=== PATIENT | male | born 1980 | race Caucasian/White ===

== ENCOUNTER 2024-09-10 14:06 | Emergency (ER) | payer OTHER ==
[~2024-09-10] VITALS: Ht 180.3 cm; Wt 81.8 kg
[2024-09-10 14:08] VITALS: TEMP 98.8
[2024-09-10 22:13] VITALS: BP 131/74; PULSE 78; RESP 18; O2SAT 99
== END 2024-09-10 22:28 | disposition home or self-care (01) ==
LOC: EMS 14:06
DX: H91.92 Unspecified hearing loss, left ear (principal); K08.89 Other specified disorders of teeth and supporting structures; E11.9 Type 2 diabetes mellitus without complications
CPT/HCPCS: 70486; 82962; 99284

== ENCOUNTER 2024-12-02 18:21 | Inpatient (IN) | payer OTHER ==
[~2024-12-02] VITALS: Ht 170.2 cm; Wt 77.3 kg
[2024-12-02 18:36] LABS: COVID AG,FIA SOURCE NASAL SWAB
[2024-12-02 19:08] LABS: SARS-COV2 (COVID) ANTIGEN,FIA Negative (Negative)
[2024-12-02 19:09] LABS: INFLUENZA TYPE A NEGATIVE FOR TYPE A (NEGATIVE); INFLUENZA TYPE B NEGATIVE FOR TYPE B (NEGATIVE)
[2024-12-02] MEDS ORDERED: 0.9% SODIUM CHLORIDE 10 ML SYRINGE IVP PRN (19:15)
[2024-12-02 19:52] LABS: BASOPHILS % (AUTO) 0.3 % (0.0-2.0); LYMPHOCYTES # (AUTO) 0.9 K/uL (1.0-4.8); MONOCYTES # (AUTO) 0.6 K/uL (0.1-1.0)
[2024-12-02 19:55] LABS: EOSINOPHILS % (AUTO) 3.3 % (1.0-6.0); HEMATOCRIT 49.6 % (41-53); HEMOGLOBIN 16.5 g/dL (13.5-17.5); LYMPHOCYTES % (AUTO) 8.6 % (22.0-44.0); MEAN CORPUSCULAR HEMOGLOBIN 31.6 pg (26.0-34.0); MEAN CORPUSCULAR HGB CONC 33.4 G/dL (31.0-37.0); MEAN CORPUSCULAR VOLUME 95 fL (80-100); MONOCYTES % (AUTO) 5.7 % (2.0-9.0); NEUTROPHILS # (AUTO) 8.8 K/uL (1.8-7.7); NEUTROPHILS % (AUTO) 82.1 % (40.0-70.0); PLATELET COUNT (AUTO) 244 K/uL (150-450); RED BLOOD CELL COUNT(AUTO) 5.24 MIL/uL (4.50-5.90); RED CELL DISTRIBUTION WIDTH 13.2 % (11.5-14.5); WHITE BLOOD COUNT (AUTO) 10.8 K/uL (4.5-11.0)
[2024-12-02 20:04] LABS: ANION GAP 12 mmol/L (8-16); CALCIUM, TOTAL 9.8 mg/dL (8.8-10.5); CARBON DIOXIDE 26 mmol/L (22-29); CHLORIDE 99 mmol/L (98-107); CREATININE 0.86 mg/dL (0.60-1.30); GLOMERULAR FILTR. RATE CALC > 60 mL/min (>60); GLUCOSE,RANDOM 103 mg/dL (70-110); POTASSIUM 3.8 mmol/L (3.5-5.1); PROTHROMBIN TIME 11.6 SEC (9.4-11.6); SODIUM SERUM 137 mmol/L (136-145); UREA NITROGEN, BLOOD 10 mg/dL (7-18)
[2024-12-02 20:13] LABS: TROPONIN I-HIGH SENSITIVITY 5 ng/L (<76)
[2024-12-02] MEDS: ACETAMINOPHEN 1000 MG/ISO-OSM 100 ML IV ONE (20:19)
[2024-12-02] MEDS: SODIUM CHLORIDE 0.9% 2,300 ML IV ONE (20:19)
[2024-12-02 20:24] LABS: ALBUMIN 4.3 g/dL (3.4-5.0); BILIRUBIN,DIRECT 0.2 mg/dL (0.00-0.20); BILIRUBIN,TOTAL 0.5 mg/dL (0.1-1.0); TOTAL PROTEIN, SERUM 8.8 g/dL (6.4-8.2)
[2024-12-02 20:29] LABS: B-TYPE NATRIURETIC PEPTIDE 8 pg/mL (0-100)
[2024-12-02 20:37] LABS: LACTIC ACID 2.2 mmol/L (0.4-2.0)
[2024-12-02] MEDS: CefTRIAXone 1 GM/DEXTROSE 50 ML IV ONE (20:55)
[2024-12-02] MEDS: AZITHROMYCIN 500 MG/NS 250 ML IV ONE (21:06)
[2024-12-02] MEDS ORDERED: ALBUTEROL SULFATE 2.5 MG/0.5 ML NEB SOLUTION NEB PRN (21:15)
[2024-12-02] MEDS ORDERED: IPRATROPIUM BROMIDE 0.5 MG/2.5 ML NEB SOLUTION NEB PRN (21:15)
[2024-12-02] MEDS ORDERED: ACETAMINOPHEN 325 MG TABLET PO PRN (21:15)
[2024-12-02] MEDS ORDERED: ONDANSETRON HCL 4 MG/2 ML VIAL IVP PRN (21:15)
[2024-12-02] MEDS: IPRATROPIUM BROMIDE 0.5 MG/2.5 ML NEB SOLUTION NEB ONE (21:42)
[2024-12-02] MEDS: ALBUTEROL SULFATE 2.5 MG/0.5 ML NEB SOLUTION NEB ONE (21:42)
[2024-12-02 21:45] VITALS: PULSE 88; RESP 22; O2SAT 97
[2024-12-02 21:52] LABS: D-DIMER 0.21 mg/L FEU (0.00-0.50)
[2024-12-02 22:01] VITALS: PULSE 90; RESP 20; O2SAT 100
[2024-12-02 22:13] LABS: APPEARANCE,URINE CLEAR (CLEAR); BILIRUBIN,URINE NEGATIVE (NEGATIVE); COLOR,URINE YELLOW (YELLOW); GLUCOSE, URINE (UA) NEGATIVE (NEGATIVE); LEUKOCYTE ESTERASE ,URINE NEGATIVE (NEGATIVE); NITRATE,URINE NEGATIVE (NEGATIVE); OCCULT BLOOD,URINE NEGATIVE (NEGATIVE); PH,URINE 5.5 (5.0-8.0); PROTEIN,URINE TRACE mg/dL (NEGATIVE); SPECIFIC GRAVITIY, URINE 1.025 (1.003-1.030)
[2024-12-02 22:19] LABS: ALCOHOL, URINE DRUG SCREEN NEGATIVE (NEGATIVE); AMPHET/METH SCREEN,URINE NEGATIVE (NEGATIVE); BARBITURATE SCREEN, URINE NEGATIVE (NEGATIVE); BENZODIAZEPINES SCREEN,URINE NEGATIVE (NEGATIVE); CANNABINOID SCREEN,URINE NEGATIVE (NEGATIVE); COCAINE SCREEN,URINE POSITIVE (NEGATIVE); METHADONE SCREEN, URINE NEGATIVE (NEGATIVE); OPIATE SCREEN,URINE NEGATIVE (NEGATIVE); PHENCYCLIDINE SCREEN,URINE NEGATIVE (NEGATIVE)
[2024-12-02 22:23] LABS: PH,URINE DRUG SCREEN 5.5 (5.0-8.0)
[2024-12-02 23:50] VITALS: BP 142/93; PULSE 65; RESP 16; TEMP 98.8; O2SAT 98
[2024-12-03] VITALS (12 sets, daily range): BP systolic 112–131; BP diastolic 73–84; PULSE 74–90; RESP 17–20; TEMP 97.8–98.6; O2SAT 94–99
[2024-12-03] MEDS: HEPARIN SODIUM,PORCINE 5,000 UNITS/ML VIAL SQ SCH (02:02)
[2024-12-03] MEDS: ALBUTEROL SULFATE 2.5 MG/0.5 ML NEB SOLUTION NEB SCH (02:08)
[2024-12-03] MEDS: IPRATROPIUM BROMIDE 0.5 MG/2.5 ML NEB SOLUTION NEB SCH (02:08)
[2024-12-03 07:38] LABS: BASOPHILS % (AUTO) 0.7 % (0.0-2.0); EOSINOPHILS % (AUTO) 7.5 % (1.0-6.0); HEMATOCRIT 40.9 % (41-53); HEMOGLOBIN 13.4 g/dL (13.5-17.5); LYMPHOCYTES # (AUTO) 1.2 K/uL (1.0-4.8); LYMPHOCYTES % (AUTO) 19.6 % (22.0-44.0); MEAN CORPUSCULAR HEMOGLOBIN 31.1 pg (26.0-34.0); MEAN CORPUSCULAR HGB CONC 32.9 G/dL (31.0-37.0); MEAN CORPUSCULAR VOLUME 95 fL (80-100); MONOCYTES # (AUTO) 0.6 K/uL (0.1-1.0); MONOCYTES % (AUTO) 10.5 % (2.0-9.0); NEUTROPHILS # (AUTO) 3.8 K/uL (1.8-7.7); NEUTROPHILS % (AUTO) 61.7 % (40.0-70.0); PLATELET COUNT (AUTO) 212 K/uL (150-450); RED BLOOD CELL COUNT(AUTO) 4.32 MIL/uL (4.50-5.90); RED CELL DISTRIBUTION WIDTH 13.1 % (11.5-14.5); WHITE BLOOD COUNT (AUTO) 6.1 K/uL (4.5-11.0)
[2024-12-03 08:30] LABS: ANION GAP 9 mmol/L (8-16); CALCIUM, TOTAL 8.6 mg/dL (8.8-10.5); CARBON DIOXIDE 25 mmol/L (22-29); CHLORIDE 105 mmol/L (98-107); CREATININE 0.72 mg/dL (0.60-1.30); GLOMERULAR FILTR. RATE CALC > 60 mL/min (>60); GLUCOSE,RANDOM 142 mg/dL (70-110); POTASSIUM 3.8 mmol/L (3.5-5.1); SODIUM SERUM 139 mmol/L (136-145); UREA NITROGEN, BLOOD 7 mg/dL (7-18)
[2024-12-03] MEDS: DOCUSATE SODIUM 100 MG CAPSULE PO SCH (08:53)
[2024-12-03] MEDS ORDERED: SODIUM CHLORIDE 0.9% 500 ML IV ONE (19:58)
[2024-12-03] MEDS: CefTRIAXone 1 GM/DEXTROSE 50 ML IV SCH (20:12)
[2024-12-03] MEDS: AZITHROMYCIN 500 MG/NS 250 ML IV SCH (21:17)
[2024-12-04] VITALS (10 sets, daily range): BP systolic 117–125; BP diastolic 70–92; PULSE 66–88; RESP 18–20; TEMP 97.7–98.1; O2SAT 95–100
[2024-12-05 04:40] VITALS: BP 121/81; PULSE 65; RESP 18; TEMP 98.1; O2SAT 95
[2024-12-05 08:00] VITALS: PULSE 75; PULSE 77; RESP 18; O2SAT 96; O2SAT 98
[2024-12-05 08:58] VITALS: BP 104/76; PULSE 60; RESP 18; TEMP 97.9; O2SAT 98
[2024-12-05] MEDS ORDERED: AMOX-457 PO (11:17)
== END 2024-12-05 13:30 | disposition home or self-care (01) | DRG 720 ==
LOC: EMS 18:21 → EDH 21:15 → 5S 23:49 → 6S 12-03 01:33
PROVIDERS: ADMIT Internal Medicine; ATTEND Internal Medicine
DX: A41.9 Sepsis, unspecified organism (principal); J18.9 Pneumonia, unspecified organism; R65.20 Severe sepsis without septic shock; Z20.822 Contact with and (suspected) exposure to COVID-19; J98.4 Other disorders of lung; E11.9 Type 2 diabetes mellitus without complications; F14.10 Cocaine abuse, uncomplicated; Z79.899 Other long term (current) drug therapy; R74.8 Abnormal levels of other serum enzymes
CPT/HCPCS: 71046; 80048; 80076; 80307; 81003; 83605; 83735; 83880; 84145; 84484; 85025; 85362; 85379; 85384; 85610; 87040; 87804; 93005; 94640; 96365; 96367; 96368; 99285; J0131; J0456; J0696; J1644; J7040; 36415-L1; 36415-TC; J7613